=== PATIENT | male | born 2000 | race American Indian/Alaskan Native ===

== ENCOUNTER 2020-08-01 14:21 | Emergency (ER) | payer SELFPAY ==
[2020-08-01 14:49] VITALS: BP 143/73
== END 2020-08-01 16:17 | disposition left against medical advice (07) ==
LOC: ED 14:21
DX: M79.10 Myalgia, unspecified site (principal); Z53.21 Procedure and treatment not carried out due to patient leaving prior to being seen by health care provider; V49.69XA Unspecified car occupant injured in collision with other motor vehicles in traffic accident, initial encounter; Y93.89 Activity, other specified; Y92.89 Other specified places as the place of occurrence of the external cause; Y99.8 Other external cause status